=== PATIENT | male | born 2000 | race Hispanic/Latino ===

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

== ENCOUNTER 2019-02-21 16:27 | Emergency (ER) | payer OTHER ==
[~2019-02-21] VITALS: Ht 182.9 cm; Wt 67.3 kg
[~2019-02-21 16:27] MED LIST: IBUPROFEN400 MG PO; PEPCID20 MG PO; ROBAXIN-750750 MG PO
--- NOTE | 2019-02-21 18:59 | NUR ---
REPORT TO [facility]
[2019-02-21] MEDS ORDERED: IBUPROFEN 600 MG TAB PO STA (19:23)
[2019-02-21] MEDS ORDERED: IBUPROFEN 200 MG TAB ONE (19:33)
--- NOTE | 2019-02-21 19:41 | Diagnostic Imaging Report ---
EXAMINATION: PA and lateral views of the chest. COMPARISON: None CLINICAL HISTORY: Chest pain DISCUSSION: Lines/tubes: None. Lungs: The lungs are well inflated and clear. No pneumonia or pulmonary edema. Pleura: No pleural effusion or pneumothorax. Heart and mediastinum: The cardiomediastinal silhouette is normal. Bones and soft tissues: No acute bony abnormalities. IMPRESSION: No acute cardiopulmonary abnormalities. Signed by: Dr. Donavan Ervin M.D. on 02/21/2019 7:38 PM
== END 2019-02-21 20:41 | disposition home or self-care (01) ==
LOC: FSED 16:27
DX: R07.89 Other chest pain (principal); R07.1 Chest pain on breathing
CPT/HCPCS: 71046; 93005; 99283